=== PATIENT | female | born 1985 | race Hispanic/Latino ===

== ENCOUNTER 2018-06-11 16:53 | Emergency (ER) | payer SELFPAY ==
[2018-06-11 17:04] VITALS: BP 129/89
--- NOTE | 2018-06-11 21:56 | Emergency Department Report ---
ED General Adult HPI - General Chief complaint: Upper Respiratory Infection Stated complaint: FLU LIKE Time Seen by Provider: 06/11/18 21:40 Source: patient Mode of arrival: Ambulatory Limitations: No Limitations - History of Present Illness Initial comments: cough an dcongestion for 1 -2 weeks. coryza the last 3-4 days. nasal congestion and a productive cough Radiation: non-radiation Consistency: constant - Related Data Previous Rx's Medication Instructions Recorded Last Taken Type HYDROcodone/APAP 7.5-325 [[place]] 5 mg PO Q8H PRN #50 ml 01/27/15 01/30/15 Rx Ibuprofen [Motrin] 800 mg PO Q8HR PRN #30 tablet 01/27/15 01/30/15 Rx Clindamycin [Clindamycin CAP] 300 mg PO Q6H #40 capsule 01/31/15 Unknown Rx Prednisone [predniSONE 10 mg 10 mg PO .TAPER #1 tab.ds.pk 01/31/15 Unknown Rx (6-Day Pack, 21 Tabs)] ALBUTEROL Inhaler (OR & NICU) 1 puff IH Q4-6H PRN #1 inha 06/11/18 Unknown Rx [ProAir HFA Inhaler] Azithromycin [Zithromax] 500 mg PO QDAY #5 tablet 06/11/18 Unknown Rx Benzonatate [Tessalon Perle] 100 mg PO BID #20 capsule 06/11/18 Unknown Rx predniSONE [Deltasone] 20 mg PO QDAY #5 tab 06/11/18 Unknown Rx Allergies Allergy/AdvReac Type Severity Reaction Status Date / Time codeine Allergy Swelling Verified 01/27/15 19:23 ED Review of Systems ROS: Stated complaint: FLU LIKE Other details as noted in HPI Constitutional: denies: chills, fever Eyes: denies: eye pain, eye discharge, vision change ENT: congestion. denies: ear pain, throat pain Respiratory: cough. denies: shortness of breath, wheezing Cardiovascular: denies: chest pain, palpitations Endocrine: no symptoms reported Gastrointestinal: denies: abdominal pain, nausea, diarrhea Genitourinary: denies: urgency, dysuria, discharge Musculoskeletal: denies: back pain, joint swelling, arthralgia Skin: denies: rash, lesions Neurological: denies: headache, weakness, paresthesias Psychiatric: denies: anxiety, depression Hematological/Lymphatic: denies: easy bleeding, easy bruising ED Past Medical Hx - Past Medical History Hx Asthma: Yes (childhood) - Surgical History Past Surgical History?: No - Social History Smoking Status: Current Every Day Smoker Substance Use Type: None - Medications Home Medications: Home Medications Medication Instructions Recorded Confirmed Last Taken Type HYDROcodone/APAP 7.5-325 [[place]] 5 mg PO Q8H PRN #50 ml 01/27/15 01/31/15 01/30/15 Rx Ibuprofen [Motrin] 800 mg PO Q8HR PRN #30 tablet 01/27/15 01/31/15 01/30/15 Rx Clindamycin [Clindamycin CAP] 300 mg PO Q6H #40 capsule 01/31/15 Unknown Rx Prednisone [predniSONE 10 mg 10 mg PO .TAPER #1 tab.ds.pk 01/31/15 Unknown Rx (6-Day Pack, 21 Tabs)] ALBUTEROL Inhaler (OR & NICU) 1 puff IH Q4-6H PRN #1 inha 06/11/18 Unknown Rx [ProAir HFA Inhaler] Azithromycin [Zithromax] 500 mg PO QDAY #5 tablet 06/11/18 Unknown Rx Benzonatate [Tessalon Perle] 100 mg PO BID #20 capsule 06/11/18 Unknown Rx predniSONE [Deltasone] 20 mg PO QDAY #5 tab 06/11/18 Unknown Rx ED Physical Exam - General Limitations: No Limitations General appearance: alert, in no apparent distress - Head Head exam: Present: atraumatic, normocephalic - Eye Eye exam: Present: normal appearance, PERRL, EOMI - ENT ENT exam: Present: normal exam, mucous membranes moist - Neck Neck exam: Present: normal inspection - Respiratory Respiratory exam: Present: normal lung sounds bilaterally. Absent: respiratory distress, wheezes, rales, stridor, chest wall tenderness, accessory muscle use - Cardiovascular Cardiovascular Exam: Present: regular rate, normal rhythm. Absent: systolic murmur, diastolic murmur, rubs, gallop - GI/Abdominal GI/Abdominal exam: Present: soft, normal bowel sounds - Extremities Exam Extremities exam: Present: normal inspection - Back Exam Back exam: Present: normal inspection - Neurological Exam Neurological exam: Present: alert, oriented X3 - Psychiatric Psychiatric exam: Present: normal affect, normal mood - Skin Skin exam: Present: warm, dry, intact, normal color. Absent: rash ED Course Vital Signs 06/11/18 17:00 Temperature 97.6 F Pulse Rate 92 H Respiratory 18 Rate Blood Pressure 129/89 O2 Sat by Pulse 97 Oximetry Critical care attestation.: If time is entered above; I have spent that time in minutes in the direct care of this critically ill patient, excluding procedure time. ED Disposition Clinical Impression: Cough, Bronchitis Disposition: DC- TO HOME OR SELFCARE Is pt being admited?: No Does the pt Need Aspirin: No Condition: Stable Instructions: Chronic Bronchitis (ED), Acute Bronchitis (ED) Referrals: PRIMARY CARE, [Primary Care Provider] - 3-5 Days [facility] [Provider Group] - 3-5 Days
== END 2018-06-11 22:05 | disposition home or self-care (01) ==
LOC: ED 16:53
DX: J40 Bronchitis, not specified as acute or chronic (principal); J45.909 Unspecified asthma, uncomplicated; F17.200 Nicotine dependence, unspecified, uncomplicated; Z88.4 Allergy status to anesthetic agent
CPT/HCPCS: 99281

== ENCOUNTER 2018-11-08 10:53 | Emergency (ER) | payer SELFPAY ==
--- NOTE | 2018-11-08 11:08 | Emergency Department Report ---
Blank Doc - Documentation Documentation: This is a 33-year-old female that presents with abdominal pain. Stated has ta gabriel 21 pills of 50 mg benadryl last night. Denies SI. Stated just wanted to sleep because she was tired. Denies depression. Denies hallucinations. Not sleepy now. This initial assessment/diagnostic orders/clinical plan/treatment(s) is/are subject to change based on patient's health status, clinical progression and re- assessment by fellow clinical providers in the ED. Further treatment and workup at subsequent clinical providers discretion. Patient/guardians urged not to elope from the ED as their condition may be serious if not clinically assessed and managed. Initial orders include: 1- Patient sent to MAIN ED for further evaluation and treatment 2- poison control notified--labs 3- EKG
[2018-11-08 12:04] LABS: Basophils # (Auto) 0.1 K/mm3 (0.0-0.1); Basophils % (Auto) 0.5 % (0.0-1.8); Eosinophils % (Auto) 0.4 % (0.0-4.3); Hematocrit 42.9 % (30.3-42.9); Hemoglobin 14.5 gm/dl (10.1-14.3); Lymphocytes # (Auto) 2.2 K/mm3 (1.2-5.4); Lymphocytes % (Auto) 17.8 % (13.4-35.0); Mean Corpuscular HGB Conc 34 % (30-34); Mean Corpuscular Volume 87 fl (79-97); Monocytes # (Auto) 0.7 K/mm3 (0.0-0.8); Monocytes % (Auto) 6.1 % (0.0-7.3); Platelet Count 344 K/mm3 (140-440); Red Cell Distribution Width 14.2 % (13.2-15.2)
[2018-11-08 12:09] LABS: Alanine Aminotransferase 26 units/L (7-56); Albumin 3.9 g/dL (3.9-5); BUN/Creatinine Ratio 9; Blood Urea Nitrogen 9 mg/dL (7-17); Calcium 9.3 mg/dL (8.4-10.2); Hemolysis Index 8
[2018-11-08 12:18] LABS: Partial Thromboplastin Time 33.2 Sec. (24.2-36.6)
[2018-11-08] MEDS ORDERED: NACL 0.9% 1000 ML 1,000 ML IV ONE (14:52)
[2018-11-08] MEDS ORDERED: ALUM-MAG HYDROX-SIMETH 200-200-20MG/5ML PO ONE (14:52)
[2018-11-08] MEDS ORDERED: LIDOCAINE VISCOUS 2% PO ONE (14:52)
--- NOTE | 2018-11-08 15:13 | Emergency Department Report ---
HPI - General Chief Complaint: Overdose Time Seen by Provider: 11/08/18 11:02 - HPI HPI: 33-year-old female presents to the emergency department with a complaint of a headache, some blurred vision, burning throat pain, burning abdominal pain and nausea without vomiting since last night, when the patient took 21 diphenhydramine. The patient says that she took the medication because she has trouble sleeping and a high medication tolerance and that she used to be on sleeping pills but they do not do anything for her. She denies taking them with the intent of harming herself. Despite taking this medication, the patient still says that she has not slept. She otherwise denies any past medical history. No recent alcohol or illicit drug use. ED Past Medical Hx - Past Medical History Hx Asthma: Yes (childhood) - Surgical History Past Surgical History?: No - Social History Smoking Status: Current Every Day Smoker Substance Use Type: None - Medications Home Medications: Home Medications Medication Instructions Recorded Confirmed Last Taken Type HYDROcodone/APAP 7.5-325 [[place]] 5 mg PO Q8H PRN #50 ml 01/27/15 01/31/15 01/30/15 Rx Ibuprofen [Motrin] 800 mg PO Q8HR PRN #30 tablet 01/27/15 01/31/15 01/30/15 Rx Clindamycin [Clindamycin CAP] 300 mg PO Q6H #40 capsule 01/31/15 Unknown Rx Prednisone [predniSONE 10 mg 10 mg PO .TAPER #1 tab.ds.pk 01/31/15 Unknown Rx (6-Day Pack, 21 Tabs)] ALBUTEROL Inhaler (OR & NICU) 1 puff IH Q4-6H PRN #1 inha 06/11/18 Unknown Rx [ProAir HFA Inhaler] Azithromycin [Zithromax] 500 mg PO QDAY #5 tablet 06/11/18 Unknown Rx Benzonatate [Tessalon Perle] 100 mg PO BID #20 capsule 06/11/18 Unknown Rx predniSONE [Deltasone] 20 mg PO QDAY #5 tab 06/11/18 Unknown Rx Omeprazole 20 mg PO QDAY #20 tablet. 11/08/18 Unknown Rx ED Review of Systems ROS: Stated complaint: STOMACH PAIN/SORE THROAT/BLURRY VISION Other details as noted in HPI Comment: All other systems reviewed and negative Constitutional: denies: chills, fever Eyes: vision change. denies: eye pain ENT: throat pain. denies: ear pain Respiratory: denies: cough, shortness of breath Cardiovascular: denies: chest pain, palpitations Gastrointestinal: abdominal pain, nausea Genitourinary: denies: dysuria, discharge Musculoskeletal: denies: back pain, arthralgia Skin: denies: rash, lesions Neurological: headache. denies: numbness, paresthesias Physical Exam - Physical Exam Vital Signs: Vital Signs 11/08/18 11:02 Temperature 98.0 F Pulse Rate 92 H Respiratory 16 Rate Blood Pressure 143/91 O2 Sat by Pulse 99 Oximetry Physical Exam: GENERAL: The patient is well-developed well-nourished. HENT: Normocephalic. Atraumatic. Patient has moist mucous membranes. Oropharynx is clear without tonsillar hypertrophy, erythema or exudates. EYES: Extraocular motions are intact. Pupils equal reactive to light bilaterally. NECK: Supple. Trachea is midline. CHEST/LUNGS: Clear to auscultation. There is no respiratory distress noted. HEART/CARDIOVASCULAR: Regular. There is no tachycardia. There is no murmur. ABDOMEN: Abdomen is soft, nontender. Patient has normal bowel sounds. There is no abdominal distention. SKIN: Skin is warm and dry. NEURO: The patient is awake, alert, and oriented. The patient is cooperative. The patient has no focal neurologic deficits. The patient has normal speech. MUSCULOSKELETAL: There is no tenderness or deformity. There is no limitation range of motion. There is no evidence of acute injury. ED Course Vital Signs 11/08/18 11:02 Temperature 98.0 F Pulse Rate 92 H Respiratory 16 Rate Blood Pressure 143/91 O2 Sat by Pulse 99 Oximetry ED Medical Decision Making - Lab Data Result diagrams: 11/08/18 11:24 11/08/18 11:24 - EKG Data -: EKG Interpreted by Me EKG shows normal: sinus rhythm, axis, intervals, QRS complexes, ST-T waves Rate: normal - EKG Data When compared to previous EKG there are: previous EKG unavailable Interpretation: normal EKG - Radiology Data Radiology results: report reviewed CT of the head does not show any acute intracranial process including no ischemia, shift, mass, bleeding or skull fracture. - Medical Decision Making This patient presents to the emergency department with complaint of continued insomnia, a frontal headache, a sore throat and a burning sensation in the throat going down into the abdomen that has been going on since last night when she overdosed on Benadryl. The patient continuously reiterates that she did not take this amount of medication with the intent of harming herself but instead because she has issues with insomnia and leave she has a medication tolerance. It has been almost 14 or 15 hours since the patient's ingestion. Poison control was contacted and we obtained the appropriate labs and EKG. They were given the results and feel that the patient has medically cleared from the any toxic effects from the Benadryl. The patient's labs were otherwise unremarkable. EKG did not show any signs of ST elevation PR, dysrhythmia or prolonged interval levels. A CT scan of the head without contrast was done that does not show any bleed, shift, mass, ischemia, or any other acute process. The patient was reevaluated multiple times and multiple hours and says she is feeling improved and asking for discharge home. She was seen by the crisis team who agrees that the patient does not appear to have any suicidal ideations or intent of self- harm and does not require being made a 1013. I discussed with the patient about the need to stick with normal prescribed doses for using the dosing on the back of a bottle or box. She will return to ER if any worsening of her symptoms or any acute distress. - Differential Diagnosis tension headache, migraine, anticholinergic syndrome, GERD Critical Care Time: No Critical care attestation.: If time is entered above; I have spent that time in minutes in the direct care of this critically ill patient, excluding procedure time. ED Disposition Clinical Impression: Anticholinergic drug overdose Qualifiers: Encounter type: initial encounter Injury intent: accidental or unintentional Qualified Code(s): T44.3X1A - Poisoning by other parasympatholytics [anticholinergics and antimuscarinics] and spasmolytics, accidental (unintentional), initial encounter GERD (gastroesophageal reflux disease) Qualifiers: Esophagitis presence: esophagitis presence not specified Qualified Code(s): K21.9 - Gastro-esophageal reflux disease without esophagitis Insomnia Qualifiers: Insomnia type: unspecified Qualified Code(s): G47.00 - Insomnia, unspecified Headache Qualifiers: Headache type: unspecified Headache chronicity pattern: unspecified pattern Intractability: not intractable Qualified Code(s): R51 - Headache Disposition: DC-01 TO HOME OR SELFCARE Is pt being admited?: No Condition: Stable Instructions: Gastroesophageal Reflux Disease (ED), Acute Headache (ED), Insomnia (ED) Additional Instructions: Please follow up with a primary care physician in the next few days. Please only take medications as they are prescribed or based on the dosing on the back of the box or bottle if it is [id number]. Return to the emergency Department with any worsening of your symptoms or any acute distress. Prescriptions: Omeprazole 20 mg PO QDAY #20 tablet. Referrals: [facility] [Outside] - 3-5 Days SENDY VILLAR DO [Staff Physician] - 3-5 Days
[2018-11-08 16:51] LABS: Bilirubin,Urine NEG (Negative); Blood,Urine NEG (Negative); Color,Urine Yellow (Yellow); Protein,Urine <15 mg/dL mg/dL (Negative); Urobilinogen,Urine < 2.0 mg/dL (<2.0)
[2018-11-08 17:11] LABS: Amphetamine Screen,Urine PRESUMPTIVE NEGATIVE; Benzodiazepines Screen,Urine PRESUMPTIVE NEGATIVE; Cannabinoid Screen,Urine PRESUMPTIVE NEGATIVE; Cocaine Screen,Urine PRESUMPTIVE NEGATIVE; Methadone Screen,Urine PRESUMPTIVE NEGATIVE; Opiate Screen,Urine PRESUMPTIVE NEGATIVE
[2018-11-08 17:32] VITALS: BP 132/96
--- NOTE | 2018-11-08 18:25 | Cat Scan Report ---
PROCEDURE: CT HEAD/BRAIN WO CON TECHNIQUE: Computerized tomography of the head was performed without contrast material. CT DOSE LENGTH PRODUCT: 920.5 mGycm HISTORY: headache COMPARISONS: None . FINDINGS: No CT evidence of intracranial mass, hemorrhage, acute territorial infarction, or hydrocephalus. Intr acranial arteries are symmetric in density. Calvarium is intact. Paranasal sinuses and mastoids are a erated. IMPRESSION: No CT evidence of acute abnormality . This document is electronically signed by Poppy Kenny MD., November 08 2018 06:23:23 PM ET
== END 2018-11-08 18:59 | disposition home or self-care (01) ==
LOC: ED 10:53
DX: T44.3X1A Poisoning by other parasympatholytics [anticholinergics and antimuscarinics] and spasmolytics, accidental (unintentional), initial encounter (principal); K21.9 Gastro-esophageal reflux disease without esophagitis; G47.00 Insomnia, unspecified; R51 Headache; Z88.5 Allergy status to narcotic agent; J45.909 Unspecified asthma, uncomplicated; F17.200 Nicotine dependence, unspecified, uncomplicated; Y92.89 Other specified places as the place of occurrence of the external cause
CPT/HCPCS: 36415; 70450; 80053; 80307; 81001; 82550; 83690; 84703; 85025; 85610; 85730; 93005; 93010; 99284; G0480; J7030; 80320

== ENCOUNTER 2019-05-06 10:40 | Emergency (ER) | payer SELFPAY ==
[2019-05-06] MEDS ORDERED: charcoal activated SOLUTION 25 GM/120 ML PO ONE (11:20)
--- NOTE | 2019-05-06 12:07 | Emergency Department Report ---
ED General Adult HPI - General Chief complaint: Overdose Stated complaint: OVERDOSE Time Seen by Provider: 05/06/19 11:17 Source: patient Mode of arrival: Ambulatory Limitations: No Limitations - History of Present Illness Initial comments: The patient presents to the emergency department with a chief complaint of overdose. Patient states she was having a hard time sleeping and states that her sleeping medications and working anymore. Patient states she took 25-type pain tablets and 27 Benadryl tablets to help her sleep. Patient denies wanted to kill himself. Stated she just wanted to sleep. -: Sudden Severity scale (0 -10): 0 Consistency: constant Improves with: none Worsens with: none Associated Symptoms: denies other symptoms Treatments Prior to Arrival: none - Related Data Previous Rx's Medication Instructions Recorded Last Taken Type HYDROcodone/APAP 7.5-325 [[place]] 5 mg PO Q8H PRN #50 ml 01/27/15 01/30/15 Rx Ibuprofen [Motrin] 800 mg PO Q8HR PRN #30 tablet 01/27/15 01/30/15 Rx Clindamycin [Clindamycin CAP] 300 mg PO Q6H #40 capsule 01/31/15 Unknown Rx Prednisone [predniSONE 10 mg 10 mg PO .TAPER #1 tab.ds.pk 01/31/15 Unknown Rx (6-Day Pack, 21 Tabs)] ALBUTEROL Inhaler (OR & NICU) 1 puff IH Q4-6H PRN #1 inha 06/11/18 Unknown Rx [ProAir HFA Inhaler] Azithromycin [Zithromax] 500 mg PO QDAY #5 tablet 06/11/18 Unknown Rx Benzonatate [Tessalon Perle] 100 mg PO BID #20 capsule 06/11/18 Unknown Rx predniSONE [Deltasone] 20 mg PO QDAY #5 tab 06/11/18 Unknown Rx Omeprazole 20 mg PO QDAY #20 tablet. 11/08/18 Unknown Rx Allergies Allergy/AdvReac Type Severity Reaction Status Date / Time codeine Allergy Swelling Verified 01/27/15 19:23 ED Review of Systems ROS: Stated complaint: OVERDOSE Other details as noted in HPI Comment: All other systems reviewed and negative Constitutional: denies: chills, fever Eyes: denies: eye pain, eye discharge, vision change ENT: denies: ear pain, throat pain Respiratory: denies: cough, shortness of breath, wheezing Cardiovascular: denies: chest pain, palpitations Endocrine: no symptoms reported Gastrointestinal: denies: abdominal pain, nausea, diarrhea Genitourinary: denies: urgency, dysuria, discharge Musculoskeletal: denies: back pain, joint swelling, arthralgia Skin: denies: rash, lesions Neurological: denies: headache, weakness, paresthesias Psychiatric: denies: anxiety, depression Hematological/Lymphatic: denies: easy bleeding, easy bruising ED Past Medical Hx - Past Medical History Previous Medical History?: No Hx Asthma: Yes (childhood) - Surgical History Past Surgical History?: No - Social History Smoking Status: Current Every Day Smoker Substance Use Type: None - Medications Home Medications: Home Medications Medication Instructions Recorded Confirmed Last Taken Type HYDROcodone/APAP 7.5-325 [[place]] 5 mg PO Q8H PRN #50 ml 01/27/15 01/31/15 0 01/30/15 Rx Ibuprofen [Motrin] 800 mg PO Q8HR PRN #30 tablet 01/27/15 01/31/15 01/30/15 Rx Clindamycin [Clindamycin CAP] 300 mg PO Q6H #40 capsule 01/31/15 Unknown Rx Prednisone [predniSONE 10 mg 10 mg PO .TAPER #1 tab.ds.pk 01/31/15 Unknown Rx (6-Day Pack, 21 Tabs)] ALBUTEROL Inhaler (OR & NICU) 1 puff IH Q4-6H PRN #1 inha 06/11/18 Unknown Rx [ProAir HFA Inhaler] Azithromycin [Zithromax] 500 mg PO QDAY #5 tablet 06/11/18 Unknown Rx Benzonatate [Tessalon Perle] 100 mg PO BID #20 capsule 06/11/18 Unknown Rx predniSONE [Deltasone] 20 mg PO QDAY #5 tab 06/11/18 Unknown Rx Omeprazole 20 mg PO QDAY #20 tablet. 11/08/18 Unknown Rx ED Physical Exam - General Limitations: No Limitations General appearance: alert, in no apparent distress - Head Head exam: Present: atraumatic, normocephalic - Eye Eye exam: Present: normal appearance - ENT ENT exam: Present: mucous membranes moist - Neck Neck exam: Present: normal inspection - Respiratory Respiratory exam: Present: normal lung sounds bilaterally. Absent: respiratory distress - Cardiovascular Cardiovascular Exam: Present: regular rate, normal rhythm, tachycardia. Absent: systolic murmur, diastolic murmur, rubs, gallop - GI/Abdominal GI/Abdominal exam: Present: soft, normal bowel sounds. Absent: distended, tenderness - Extremities Exam Extremities exam: Present: normal inspection - Back Exam Back exam: Present: normal inspection - Neurological Exam Neurological exam: Present: alert, oriented X3, CN II-XII intact - Psychiatric Psychiatric exam: Present: normal affect, normal mood - Skin Skin exam: Present: warm, dry, intact, normal color. Absent: rash ED Course Vital Signs 05/06/19 05/06/19 05/06/19 11:58 12:00 12:30 Temperature 98.9 F Pulse Rate 100 H 94 H 94 H Respiratory 25 H 25 H 23 Rate Blood Pressure 132/93 122/82 125/88 O2 Sat by Pulse 100 Oximetry 05/06/19 05/06/19 05/06/19 13:09 13:30 14:00 Temperature Pulse Rate 86 90 Respiratory 16 24 23 Rate Blood Pressure 125/88 121/79 118/81 O2 Sat by Pulse 94 Oximetry 05/06/19 05/06/19 05/06/19 14:30 15:01 15:31 Temperature Pulse Rate 105 H 102 H 86 Respiratory 18 25 H 20 Rate Blood Pressure 129/81 124/81 124/70 O2 Sat by Pulse 96 97 92 Oximetry 05/06/19 16:00 Temperature Pulse Rate 88 Respiratory 22 Rate Blood Pressure 129/92 O2 Sat by Pulse Oximetry ED Medical Decision Making - Lab Data Result diagrams: 05/06/19 11:31 05/06/19 11:31 Lab Results 05/06/19 05/06/19 05/06/19 Range/Units 11:31 11:31 11:31 WBC 10.6 (4.5-11.0) K/mm3 RBC 4.85 (3.65-5.03) M/mm3 Hgb 14.8 H (10.1-14.3) gm/dl Hct 43.5 H (30.3-42.9) % MCV 90 (79-97) fl MCH 31 (28-32) pg MCHC 34 (30-34) % RDW 14.4 (13.2-15.2) % Plt Count 350 (140-440) K/mm3 Lymph % (Auto) 27.0 (13.4-35.0) % Josephine % (Auto) 7.7 H (0.0-7.3) % Eos % (Auto) 2.5 (0.0-4.3) % Baso % (Auto) 1.3 (0.0-1.8) % Lymph # 2.9 (1.2-5.4) K/mm3 Josephine # 0.8 (0.0-0.8) K/mm3 Eos # 0.3 (0.0-0.4) K/mm3 Baso # 0.1 (0.0-0.1) K/mm3 Seg Neutrophils % 61.5 (40.0-70.0) % Seg Neutrophils # 6.5 (1.8-7.7) K/mm3 PT (12.2-14.9) Sec. INR (0.87-1.13) APTT (24.2-36.6) Sec. Sodium 133 L (137-145) mmol/L Potassium 4.0 (3.6-5.0) mmol/L Chloride 96.7 L (98-107) mmol/L Carbon Dioxide 21 L (22-30) mmol/L Anion Gap 19 mmol/L BUN 9 (7-17) mg/dL Creatinine 0.9 (0.7-1.2) mg/dL Estimated GFR > 60 ml/min BUN/Creatinine Ratio 10 % Glucose 78 (65-100) mg/dL Calcium 9.2 (8.4-10.2) mg/dL Total Bilirubin 0.20 (0.1-1.2) mg/dL AST 23 (5-40) units/L ALT 20 (7-56) units/L Alkaline Phosphatase 134 H (35-129) units/L Total Protein 7.7 (6.3-8.2) g/dL Albumin 4.0 (3.9-5) g/dL Albumin/Globulin Ratio 1.1 % HCG, Qual (Negative) Urine Color (Yellow) Urine Turbidity (Clear) Urine pH (5.0-7.0) Ur Specific [place] (1.003-1.030) Urine Protein (Negative) mg/dL Urine Glucose (UA) (Negative) mg/dL Urine Ketones (Negative) mg/dL Urine Blood (Negative) Urine Nitrite (Negative) Urine Bilirubin (Negative) Urine Urobilinogen (<2.0) mg/dL Ur Leukocyte Esterase (Negative) Urine WBC (Auto) (0.0-6.0) /HPF Urine RBC (Auto) (0.0-6.0) /HPF U Epithel Cells (Auto) (0-13.0) /HPF Urine Bacteria (Auto) (Negative) /HPF Salicylates < 0.3 L (2.8-20.0) mg/dL Urine Opiates Screen Urine Methadone Screen Acetaminophen (10.0-30.0) ug/mL Ur Barbiturates Screen Ur Phencyclidine Scrn Ur Amphetamines Screen U Benzodiazepines Scrn Urine Cocaine Screen U Marijuana (THC) Screen Drugs of Abuse Note Plasma/Serum Alcohol (0-0.07) % 05/06/19 05/06/19 05/06/19 Range/Units 11:31 11:31 11:31 WBC (4.5-11.0) K/mm3 RBC (3.65-5.03) M/mm3 Hgb (10.1-14.3) gm/dl Hct (30.3-42.9) % MCV (79-97) fl MCH (28-32) pg MCHC (30-34) % RDW (13.2-15.2) % Plt Count (140-440) K/mm3 Lymph % (Auto) (13.4-35.0) % Josephine % (Auto) (0.0-7.3) % Eos % (Auto) (0.0-4.3) % Baso % (Auto) (0.0-1.8) % Lymph # (1.2-5.4) K/mm3 Josephine # (0.0-0.8) K/mm3 Eos # (0.0-0.4) K/mm3 Baso # (0.0-0.1) K/mm3 Seg Neutrophils % (40.0-70.0) % Seg Neutrophils # (1.8-7.7) K/mm3 PT 12.3 (12.2-14.9) Sec. INR 0.92 (0.87-1.13) APTT 29.2 (24.2-36.6) Sec. Sodium (137-145) mmol/L Potassium (3.6-5.0) mmol/L Chloride (98-107) mmol/L Carbon Dioxide (22-30) mmol/L Anion Gap mmol/L BUN (7-17) mg/dL Creatinine (0.7-1.2) mg/dL Estimated GFR ml/min BUN/Creatinine Ratio % Glucose (65-100) mg/dL Calcium (8.4-10.2) mg/dL Total Bilirubin (0.1-1.2) mg/dL AST (5-40) units/L ALT (7-56) units/L Alkaline Phosphatase (35-129) units/L Total Protein (6.3-8.2) g/dL Albumin (3.9-5) g/dL Albumin/Globulin Ratio % HCG, Qual (Negative) Urine Color (Yellow) Urine Turbidity (Clear) Urine pH (5.0-7.0) Ur Specific [place] (1.003-1.030) Urine Protein (Negative) mg/dL Urine Glucose (UA) (Negative) mg/dL Urine Ketones (Negative) mg/dL Urine Blood (Negative) Urine Nitrite (Negative) Urine Bilirubin (Negative) Urine Urobilinogen (<2.0) mg/dL Ur Leukocyte Esterase (Negative) Urine WBC (Auto) (0.0-6.0) /HPF Urine RBC (Auto) (0.0-6.0) /HPF U Epithel Cells (Auto) (0-13.0) /HPF Urine Bacteria (Auto) (Negative) /HPF Salicylates (2.8-20.0) mg/dL Urine Opiates Screen Urine Methadone Screen Acetaminophen < 5.0 L (10.0-30.0) ug/mL Ur Barbiturates Screen Ur Phencyclidine Scrn Ur Amphetamines Screen U Benzodiazepines Scrn Urine Cocaine Screen U Marijuana (THC) Screen Drugs of Abuse Note Plasma/Serum Alcohol < 0.01 (0-0.07) % 05/06/19 05/06/19 05/06/19 Range/Units 11:31 11:45 11:45 WBC (4.5-11.0) K/mm3 RBC (3.65-5.03) M/mm3 Hgb (10.1-14.3) gm/dl Hct (30.3-42.9) % MCV (79-97) fl MCH (28-32) pg MCHC (30-34) % RDW (13.2-15.2) % Plt Count (140-440) K/mm3 Lymph % (Auto) (13.4-35.0) % Josephine % (Auto) (0.0-7.3) % Eos % (Auto) (0.0-4.3) % Baso % (Auto) (0.0-1.8) % Lymph # (1.2-5.4) K/mm3 Josephine # (0.0-0.8) K/mm3 Eos # (0.0-0.4) K/mm3 Baso # (0.0-0.1) K/mm3 Seg Neutrophils % (40.0-70.0) % Seg Neutrophils # (1.8-7.7) K/mm3 PT (12.2-14.9) Sec. INR (0.87-1.13) APTT (24.2-36.6) Sec. Sodium (137-145) mmol/L Potassium (3.6-5.0) mmol/L Chloride (98-107) mmol/L Carbon Dioxide (22-30) mmol/L Anion Gap mmol/L BUN (7-17) mg/dL Creatinine (0.7-1.2) mg/dL Estimated GFR ml/min BUN/Creatinine Ratio % Glucose (65-100) mg/dL Calcium (8.4-10.2) mg/dL Total Bilirubin (0.1-1.2) mg/dL AST (5-40) units/L ALT (7-56) units/L Alkaline Phosphatase (35-129) units/L Total Protein (6.3-8.2) g/dL Albumin (3.9-5) g/dL Albumin/Globulin Ratio % HCG, Qual Negative (Negative) Urine Color Yellow (Yellow) Urine Turbidity Hazy (Clear) Urine pH 6.0 (5.0-7.0) Ur Specific [place] 1.008 (1.003-1.030) Urine Protein <15 mg/dl (Negative) mg/dL Urine Glucose (UA) Neg (Negative) mg/dL Urine Ketones Neg (Negative) mg/dL Urine Blood Mod (Negative) Urine Nitrite Neg (Negative) Urine Bilirubin Neg (Negative) Urine Urobilinogen < 2.0 (<2.0) mg/dL Ur Leukocyte Esterase Neg (Negative) Urine WBC (Auto) 2.0 (0.0-6.0) /HPF Urine RBC (Auto) 2.0 (0.0-6.0) /HPF U Epithel Cells (Auto) 2.0 (0-13.0) /HPF Urine Bacteria (Auto) 1+ (Negative) /HPF Salicylates (2.8-20.0) mg/dL Urine Opiates Screen Presumptive negative Urine Methadone Screen Presumptive negative Acetaminophen (10.0-30.0) ug/mL Ur Barbiturates Screen Presumptive negative Ur Phencyclidine Scrn Presumptive negative Ur Amphetamines Screen Presumptive negative U Benzodiazepines Scrn Presumptive negative Urine Cocaine Screen Presumptive negative U Marijuana (THC) Screen Presumptive negative Drugs of Abuse Note Disclamer Plasma/Serum Alcohol (0-0.07) % - EKG Data -: EKG Interpreted by Me EKG shows normal: sinus rhythm Rate: normal - Medical Decision Making Psych hold applied 1013 done Activated charcoal given Physical control contacted and the patient was discussed in detail plan is to evaluate the patient's is hours status post ingestion and watch for changes and QT interval another EKG findings Also was discussed to watch the patient's history status Is control states that 6 hours patient can be medically cleared She was medically cleared at 4:50 PM Critical care attestation.: If time is entered above; I have spent that time in minutes in the direct care of this critically ill patient, excluding procedure time. ED Disposition Clinical Impression: Intentional drug overdose Disposition: DC/TX-65 PSY HOSP/PSY UNIT Is pt being admited?: No Does the pt Need Aspirin: No Condition: Stable
[2019-05-06 12:09] LABS: Bacteria,Urine 1+ /HPF (Negative); Bilirubin,Urine NEG (Negative); Blood,Urine MOD (Negative); Color,Urine Yellow (Yellow); Protein,Urine <15 mg/dL mg/dL (Negative); Urobilinogen,Urine < 2.0 mg/dL (<2.0)
[2019-05-06 12:17] LABS: Basophils # (Auto) 0.1 K/mm3 (0.0-0.1); Basophils % (Auto) 1.3 % (0.0-1.8); Eosinophils # (Auto) 0.3 K/mm3 (0.0-0.4); Eosinophils % (Auto) 2.5 % (0.0-4.3); Hematocrit 43.5 % (30.3-42.9); Hemoglobin 14.8 gm/dl (10.1-14.3); Lymphocytes # (Auto) 2.9 K/mm3 (1.2-5.4); Mean Corpuscular HGB Conc 34 % (30-34); Mean Corpuscular Volume 90 fl (79-97); Monocytes # (Auto) 0.8 K/mm3 (0.0-0.8); Monocytes % (Auto) 7.7 % (0.0-7.3); Platelet Count 350 K/mm3 (140-440); Red Blood Count 4.85 M/mm3 (3.65-5.03); Red Cell Distribution Width 14.4 % (13.2-15.2)
[2019-05-06 12:20] LABS: INR 0.92 (0.87-1.13)
[2019-05-06 12:20] LABS: Amphetamine Screen,Urine PRESUMPTIVE NEGATIVE; Benzodiazepines Screen,Urine PRESUMPTIVE NEGATIVE; Cannabinoid Screen,Urine PRESUMPTIVE NEGATIVE; Cocaine Screen,Urine PRESUMPTIVE NEGATIVE; Methadone Screen,Urine PRESUMPTIVE NEGATIVE; Opiate Screen,Urine PRESUMPTIVE NEGATIVE
[2019-05-06 12:21] LABS: Partial Thromboplastin Time 29.2 Sec. (24.2-36.6)
[2019-05-06 12:24] LABS: Alanine Aminotransferase 20 units/L (7-56); BUN/Creatinine Ratio 10; Blood Urea Nitrogen 9 mg/dL (7-17); Calcium 9.2 mg/dL (8.4-10.2); Hemolysis Index 41
--- NOTE | 2019-05-07 12:35 | Consultation ---
History of Present Illness - Reason for Consult Consult date: 05/07/19 Reason for consult: Overdose of medications. - Chief Complaint Chief complaint: I just wanted to sleep - History of Present Psychiatric Illness The patient is a 33yo but unemployed female with history of Bipolar disorder, Borderline PD and Social Anxiety. Psychiatry consult was requested to evaluate patient and recommend disposition. In my interview with the patient this morning, she completely denies attempting to kill herself, states that she took the tablets to enable her fall asleep. She denies being suicidal/homicidal at present time. She denies hallucinations/paranoia. She follows up with a Psychiatrist in [place] which is where she lives. She denies illicit drug use. Medications and Allergies Allergies Allergy/AdvReac Type Severity Reaction Status Date / Time codeine Allergy Swelling Verified 01/27/15 19:23 Home Medications Medication Instructions Recorded Confirmed Last Taken Type HYDROcodone/APAP 7.5-325 [[place]] 5 mg PO Q8H PRN #50 ml 01/27/15 05/07/19 01/30/15 Rx Ibuprofen [Motrin] 800 mg PO Q8HR PRN #30 tablet 01/27/15 05/07/19 01/30/15 Rx Clindamycin [Clindamycin CAP] 300 mg PO Q6H #40 capsule 01/31/15 05/07/19 Unkn own Rx Prednisone [predniSONE 10 mg 10 mg PO .TAPER #1 tab.ds.pk 01/31/15 05/07/19 Unknown Rx (6-Day Pack, 21 Tabs)] ALBUTEROL Inhaler (OR & NICU) 1 puff IH Q4-6H PRN #1 inha 06/11/18 05/07/19 Unknown Rx [ProAir HFA Inhaler] Azithromycin [Zithromax] 500 mg PO QDAY #5 tablet 06/11/18 05/07/19 Unknown Rx Benzonatate [Tessalon Perle] 100 mg PO BID #20 capsule 06/11/18 05/07/19 Unknown Rx predniSONE [Deltasone] 20 mg PO QDAY #5 tab 06/11/18 05/07/19 Unknown Rx Omeprazole 20 mg PO QDAY #20 tablet. 11/08/18 05/07/19 Unknown Rx Past psychiatric history - past Psychiatric treatment and history Psych: Anxiety, Bipolar psychiatric treatment history: 3 previous admissions, 2 suicide attempts. Last suicide attempt/admission was 1 year ago - Social History Social history: no significant social history Mental Status Exam - Vital signs Last Vital Signs Temp 97.9 F 05/07/19 07:00 Pulse 76 05/07/19 07:00 Resp 18 05/07/19 07:00 BP 125/87 05/07/19 07:00 Pulse Ox 94 05/07/19 07:00 - Exam Orientation: time, place, person Affect: normal Mood: appropriate Thought Process: Intact Perceptions: none Speech: normal rate and pattern Concentration: focused Motor activity: normal Level of consciousness: alert Memory: Intact Sleep Symptoms: Difficulty Falling Asleep Interaction: cooperative Results Result Diagrams: 05/06/19 11:31 05/06/19 11:31 All other labs normal. Assessment and Plan - Psychiatric problem (1) Intentional drug overdose Current Visit: Yes Status: Acute plan to address problem: Patient may be discharged home when medically stable. 1013 rescinded. Patient wants to follow up with her outpatient psychiatrist in [place]
[2019-05-07 15:15] VITALS: BP 118/79
== END 2019-05-07 16:26 ==
LOC: ED 10:40
DX: T45.0X1A Poisoning by antiallergic and antiemetic drugs, accidental (unintentional), initial encounter (principal); F17.200 Nicotine dependence, unspecified, uncomplicated; J45.909 Unspecified asthma, uncomplicated; Z88.5 Allergy status to narcotic agent; Y92.89 Other specified places as the place of occurrence of the external cause
CPT/HCPCS: 36415; 80053; 80307; 80320; 81001; 84703; 85025; 85610; 85730; 93005; 93010; G0480

== ENCOUNTER 2020-02-18 02:40 | Emergency (ER) | payer SELFPAY ==
[2020-02-18] MEDS ORDERED: SODIUM CHLORIDE 0.9% 1000 ML 1,000 ML IV ONE (02:53)
--- NOTE | 2020-02-18 03:03 | Emergency Department Report ---
History of Present Illness - General Chief Complaint: Overdose Stated Complaint: OVERDOSE Time Seen by Provider: 02/18/20 02:53 Source: EMS Mode of arrival: Stretcher Limitations: No Limitations - History of Present Illness Initial Comments: Patient is 34 years old female with history of bipolar disorder. Patient brought to the emergency room via EMS from home for evaluation of possible overdose. Patient stated that she took approximately 55 tablets of Seroquel altogether approximately between 11 to 11:30 PM. Patient stated that 40 tablets was 100 mg pill and the other 20 were 25 mg pills. Patient stated that she took it because he cannot go to sleep however she stated that she is hearing voices asking her to kill herself. Patient has similar episode last year. Patient denied homicidal ideation. MD Complaint: intentional overdose -: This evening Intent: want to go to sleep How Overdose Was Discovered: called 911 Associated Symptoms: depression Treatments Prior to Arrival: none - Related Data Previous Rx's Medication Instructions Recorded Last Taken Type HYDROcodone/APAP 7.5-325 [[place]] 5 mg PO Q8H PRN #50 ml 01/27/15 01/30/15 Rx Ibuprofen [Motrin] 800 mg PO Q8HR PRN #30 tablet 01/27/15 01/30/15 Rx Clindamycin [Clindamycin CAP] 300 mg PO Q6H #40 capsule 01/31/15 Unknown Rx Prednisone [predniSONE 10 mg 10 mg PO .TAPER #1 tab.ds.pk 01/31/15 Unknown Rx (6-Day Pack, 21 Tabs)] Albuterol Mdi (or & Nicu Only) 1 puff IH Q4-6H PRN #1 inha 06/11/18 Unknown Rx [ProAir HFA Inhaler] Azithromycin [Zithromax] 500 mg PO QDAY #5 tablet 06/11/18 Unknown Rx Benzonatate [Tessalon Perle] 100 mg PO BID #20 capsule 06/11/18 Unknown Rx predniSONE [Deltasone] 20 mg PO QDAY #5 tab 06/11/18 Unknown Rx Omeprazole 20 mg PO QDAY #20 tablet. 11/08/18 Unknown Rx Allergies Allergy/AdvReac Type Severity Reaction Status Date / Time codeine Allergy Swelling Verified 01/27/15 19:23 ED Review of Systems ROS: Stated complaint: OVERDOSE Other details as noted in HPI Comment: All other systems reviewed and negative Constitutional: denies: chills, fever Respiratory: denies: cough, shortness of breath, SOB with exertion, SOB at rest Cardiovascular: denies: chest pain Gastrointestinal: denies: abdominal pain, nausea, vomiting Neurological: denies: headache, weakness, numbness, paresthesias, confusion, abnormal gait ED Past Medical Hx - Past Medical History Hx Asthma: Yes (childhood) - Social History Smoking Status: Current Every Day Smoker Substance Use Type: None - Medications Home Medications: Home Medications Medication Instructions Recorded Confirmed Last Taken Type HYDROcodone/APAP 7.5-325 [[place]] 5 mg PO Q8H PRN #50 ml 01/27/15 05/07/19 01/30/15 Rx Ibuprofen [Motrin] 800 mg PO Q8HR PRN #30 tablet 01/27/15 05/07/19 01/30/15 Rx Clindamycin [Clindamycin CAP] 300 mg PO Q6H #40 capsule 01/31/15 05/07/19 Unknown Rx Prednisone [predniSONE 10 mg 10 mg PO .TAPER #1 tab.ds.pk 01/31/15 05/07/19 Unknown Rx (6-Day Pack, 21 Tabs)] Albuterol Mdi (or & Nicu Only) 1 puff IH Q4-6H PRN #1 inha 06/11/18 05/07/19 Unknown Rx [ProAir HFA Inhaler] Azithromycin [Zithromax] 500 mg PO QDAY #5 tablet 06/11/18 05/07/19 Unknown Rx Benzonatate [Tessalon Perle] 100 mg PO BID #20 capsule 06/11/18 05/07/19 Unknown Rx predniSONE [Deltasone] 20 mg PO QDAY #5 tab 06/11/18 05/07/19 Unknown Rx Omeprazole 20 mg PO QDAY #20 tablet. 11/08/18 05/07/19 Unknown Rx ED Physical Exam - General Limitations: No Limitations General appearance: alert, in no apparent distress - Head Head exam: Present: atraumatic, normocephalic, normal inspection - Eye Eye exam: Present: normal appearance - ENT ENT exam: Present: normal exam, normal orophraynx, mucous membranes moist - Neck Neck exam: Present: normal inspection, full ROM. Absent: tenderness, meningismu s - Respiratory Respiratory exam: Present: normal lung sounds bilaterally - Cardiovascular Cardiovascular Exam: Present: regular rate, normal rhythm, normal heart sounds - GI/Abdominal GI/Abdominal exam: Present: soft, normal bowel sounds. Absent: distended, tenderness, guarding, rebound, rigid, organomegaly, mass, bruit, pulsatile mass, hernia - Extremities Exam Extremities exam: Present: normal inspection, full ROM, normal capillary refill. Absent: calf tenderness - Neurological Exam Neurological exam: Present: alert, oriented X3, CN II-XII intact - Psychiatric Psychiatric exam: Present: depressed - Skin Skin exam: Present: warm, intact, normal color ED Course Vital Signs 02/18/20 02/18/20 02/18/20 03:07 03:11 06:02 Temperature 98.8 F Pulse Rate 107 H 107 H 77 Respiratory 18 18 17 Rate Blood Pressure 112/76 Blood Pressure 112/76 95/57 [Left] Blood Pressure [Right] O2 Sat by Pulse 91 91 92 Oximetry 02/18/20 02/18/20 02/18/20 07:11 08:28 20:29 Temperature 96 F L 97.9 F Pulse Rate 98 H 67 Respiratory 19 16 Rate Blood Pressure Blood Pressure 141/89 134/86 137/83 [Left] Blood Pressure [Right] O2 Sat by Pulse 100 97 Oximetry 02/19/20 02/19/20 02/19/20 02:12 08:02 08:04 Temperature 97.8 F 97.9 F Pulse Rate 73 82 Respiratory 16 18 18 Rate Blood Pressure Blood Pressure [Left] Blood Pressure 120/76 148/90 [Right] O2 Sat by Pulse 99 99 97 Oximetry - Reevaluation(s) Reevaluation #1: 02/19/20 13:56 Patient has been evaluated by our psychiatric team and advised to discharge patient and follow-up as an outpatient. Patient is currently denying any suicidal or homicidal ideation. She also denied any auditory or visual hallucination. Patient is medically and psychiatrically stable for discharge. - Consultations Consultation #1: 02/18/20 05:17 Nurse Niurka spoke to Gary from poison control, stated immediate release peaks in 1.5 hours but because she took so much that changes, look for somnolence, Dry mouth, tacycardia, wide QRS complexes greater than 100m/sec this can lead to seizures, prolonged QTC can lead to Torsades, can lead to Resp distress. Monitor VS, EKG Q2 X 3, CBC, CMP,Renal and liver function tylenol and etoh levels. Mag @ 2meq, K+ @4, and CA @9 ED Medical Decision Making - Lab Data Result diagrams: 02/18/20 03:24 02/18/20 03:24 - EKG Data -: EKG Interpreted by Me EKG shows normal: sinus rhythm Rate: normal - EKG Data Interpretation: no acute changes - Medical Decision Making Patient is 34 years old female with history of bipolar disorder. Patient brought to the emergency room via EMS from home for evaluation of possible overdose. Patient stated that she took approximately 55 tablets of Seroquel altogether approximately between 11 to 11:30 PM. Patient stated that 40 tablets was 100 mg pill and the other 20 were 25 mg pills. Patient stated that she took it because he cannot go to sleep however she stated that she is hearing voices asking her to kill herself. Patient has similar episode last year. Patient denied homicidal ideation. Labs reviewed and is unremarkable. Patient is alert, oriented x3 patient walked to bathroom and no difficulties. Patient is medically cleared to be evaluated by psychiatric team for possible inpatient psychiatric management. Critical Care Time: Yes Critical care time in (mins) excluding proc time.: 30 Critical care attestation.: If time is entered above; I have spent that time in minutes in the direct care of this critically ill patient, excluding procedure time. ED Disposition Clinical Impression: Suicide attempt, Intentional drug overdose Disposition: DC-01 TO HOME OR SELFCARE Is pt being admited?: No Condition: Stable Instructions: Suicide Prevention for Adults (ED) Referrals: PRIMARY CARE, [Primary Care Provider] - 3-5 Days
[2020-02-18 04:08] LABS: Basophils # (Auto) 0.1 K/mm3 (0.0-0.1); Basophils % (Auto) 0.8 % (0.0-1.8); Eosinophils % (Auto) 0.3 % (0.0-4.3); Hematocrit 37.9 % (30.3-42.9); Hemoglobin 13.5 gm/dl (10.1-14.3); Lymphocytes # (Auto) 1.4 K/mm3 (1.2-5.4); Lymphocytes % (Auto) 10.8 % (13.4-35.0); Mean Corpuscular HGB Conc 36 % (30-34); Mean Corpuscular Volume 89 fl (79-97); Monocytes # (Auto) 0.6 K/mm3 (0.0-0.8); Monocytes % (Auto) 4.5 % (0.0-7.3); Platelet Count 336 K/mm3 (140-440); Red Blood Count 4.26 M/mm3 (3.65-5.03); Red Cell Distribution Width 14.6 % (13.2-15.2)
[2020-02-18 04:11] LABS: BUN/Creatinine Ratio 14; Blood Urea Nitrogen 14 mg/dL (7-17); Calcium 8.8 mg/dL (8.4-10.2); Hemolysis Index 1
[2020-02-18 04:14] LABS: Alanine Aminotransferase 20 units/L (7-56); Albumin 3.9 g/dL (3.9-5)
[2020-02-18 04:16] LABS: Bilirubin,Direct < 0.2 mg/dL (0-0.2)
[2020-02-18] MEDS ORDERED: SODIUM CHLORIDE 0.9% 1000 ML 0 ML ONE (06:31)
[2020-02-18 09:31] LABS: Bilirubin,Urine NEG (Negative); Blood,Urine NEG (Negative); Color,Urine Colorless (Yellow); Protein,Urine <15 mg/dL mg/dL (Negative); RBC,Urine < 1.0 /HPF (0.0-6.0); Urobilinogen,Urine < 2.0 mg/dL (<2.0); WBC,Urine < 1.0 /HPF (0.0-6.0)
[2020-02-18 09:37] LABS: Amphetamine Screen,Urine Negative; Benzodiazepines Screen,Urine Negative; Cannabinoid Screen,Urine Negative; Cocaine Screen,Urine Negative; Methadone Screen,Urine Negative; Opiate Screen,Urine Negative
--- NOTE | 2020-02-19 11:07 | Consultation ---
History of Present Illness - Reason for Consult Consult date: 02/19/20 Reason for consult: MHE Requesting physician: TERRENCE ALBERT - History of Present Psychiatric Illness Per ED Provider: Patient is 34 years old female with history of bipolar disorder. Patient brought to the emergency room via EMS from home for evaluation of possible overdose. Patient stated that she took approximately 55 tablets of Seroquel altogether approximately between 11 to 11:30 PM. Patient stated that 40 tablets was 100 mg pill and the other 20 were 25 mg pills. Patient stated that she took it because he cannot go to sleep however she stated that she is hearing voices asking her to kill herself. Patient has similar episode last year. Patient denied homicidal ideation. PSYCH HPI Patient is a 34 year old single unemployed female who resides with family, has past psychiatric history of borderline personality and schizophrenia, anxiety and insomnia who presents to ED with concerns of overdose after partner found patient. Patient denies no suicidal intention prior to taking her medications which included seroquel, she reports having chronic sleep issues, she reports having tried multiple meds including ambien with her outpt psychiatrist Dr. Jeffries whom she sees every 3 months and over telemedicine since covid started. She reports normally taking 25mg of Seroquel in the morning and 150mg at night which normally works but lately has been having difficulty sleeping, she denies hearing voices telling her to do so or seeing things. PAST PSYCHIATRIC HISTORY Diagnoses: borderline personality and schizophrenia, anxiety and insomnia Suicide attempts or Self-harm behavior: Yes Prior psychiatric hospitalizations: yes Substance Abuse history: none reported Previous psychiatric medications tried: multiple Outpatient treatment: yes PAST MEDICAL HISTORY: Family Psychiatric History: None reported or documented SOCIAL HISTORY Marital Status: single Living Arrangements: with family and BF Employment Status: unemployed Access to guns/weapons: none Education: 11th grade drop out History of Abuse: none reported Legal History: none REVIEW OF SYSTEMS Constitutional: Negative for weight loss ENT: Negative for stridor Respiratory: Negative for cough or hemoptysis All other systems reviewed and are negative MENTAL STATUS EXAMINATION General Appearance and Behavior: Age appropriate, good hygiene, wearing appropriate clothes, lying in bed, good eye contact, cooperative polite with questioning. Cooperation: Participating/engaged Psychomotor Behavior: unremarkable and within normal limits Mood: Good Affect and affective range:congruent with mood Thought Process: Fluent/Logical Thought Content: Within reality Speech: Normal volume, Regular rate and rhythm Intellectual Functioning: Average Suicidal Ideation: Denies SI Homicidal Ideation: Denies HI Impulse Control: Unimpaired Insight and Judgment: Normal insight and judgment Memory: Normal, Attention: Normal Orientation: Alert, oriented Assessment and Plan - Psychiatric problem (1) Chronic insomnia Current Visit: Yes Status: Acute (2) Borderline personality disorder Current Visit: Yes Status: Acute Treatment Plan Collateral: I spoke with Patients Partner Mr Junaid who had called 911 and he affirms he does not think it was suidal intent, he was just concerned she may have taken too much and need medical attention. He reports willing to pick patient up or send his mother who is regarded as mother inlaw for safety discharge. MEDICATIONS: Risks, benefits and alternatives of medications discussed with the patient, questions answered and consent obtained from patient. PSYCHOTHERAPY: Supportive psychotherapy provided MEDICAL: Per primary team DELIRIUM PRECAUTIONS: Please re-orient patient frequently, keep lights on during the day, and minimize benzodiazepines and opiates as these medications could worsen patient's confusion. SOLAR THERMAL TECHNICIAN: DISPOSITION: Do Not Recommend acute inpatient psychiatric hospitalization at this time. Safety discharge LEGAL STATUS: [id number] rescinded FOLLOW-UP: Will follow Thank you for the consult. Please contact with any questions and/or concerns. Medications and Allergies Allergies Allergy/AdvReac Type Severity Reaction Status Date / Time codeine Allergy Swelling Verified 01/27/15 19:23 Home Medications Medication Instructions Recorded Confirmed Last Taken Type HYDROcodone/APAP 7.5-325 [Bapchule] 5 mg PO Q8H PRN #50 ml 01/27/15 05/07/19 01/30/15 Rx Ibuprofen [Motrin] 800 mg PO Q8HR PRN #30 tablet 01/27/15 05/07/19 01/30/15 Rx Clindamycin [Clindamycin CAP] 300 mg PO Q6H #40 capsule 01/31/15 05/07/19 Unknown Rx Prednisone [predniSONE 10 mg 10 mg PO .TAPER #1 tab.ds.pk 01/31/15 05/07/19 Unknown Rx (6-Day Pack, 21 Tabs)] Albuterol Mdi (or & Nicu Only) 1 puff IH Q4-6H PRN #1 inha 06/11/18 05/07/19 Unknown Rx [ProAir HFA Inhaler] Azithromycin [Zithromax] 500 mg PO QDAY #5 tablet 06/11/18 05/07/19 Unknown Rx Benzonatate [Tessalon Perle] 100 mg PO BID #20 capsule 06/11/18 05/07/19 Unknown Rx predniSONE [Deltasone] 20 mg PO QDAY #5 tab 06/11/18 05/07/19 Unknown Rx Omeprazole 20 mg PO QDAY #20 tablet. 11/08/18 05/07/19 Unknown Rx Mental Status Exam - Vital signs Last Vital Signs Temp 97.9 F 02/19/20 08:04 Pulse 82 02/19/20 08:04 Resp 18 02/19/20 08:04 BP 148/90 02/19/20 08:04 Pulse Ox 97 02/19/20 08:04 Results Result Diagrams: 02/18/20 03:24 02/18/20 03:24 All other labs normal. Assessment and Plan - Psychiatric problem (1) Chronic insomnia Current Visit: Yes Status: Acute (2) Borderline personality disorder Current Visit: Yes Status: Acute
[2020-02-19 19:10] VITALS: BP 140/82
== END 2020-02-19 14:25 | disposition home or self-care (01) ==
LOC: ED 02:40
DX: T65.92XA Toxic effect of unspecified substance, intentional self-harm, initial encounter (principal); J45.909 Unspecified asthma, uncomplicated; Z79.1 Long term (current) use of non-steroidal anti-inflammatories (NSAID); Z79.899 Other long term (current) drug therapy; Z88.8 Allergy status to other drugs, medicaments and biological substances; Y92.89 Other specified places as the place of occurrence of the external cause
CPT/HCPCS: 36415; 80048; 80076; 80307; 81001; 83735; 84703; 85025; 93005; 96360; 99285; J7030; 80320; G0480